=== PATIENT | male | born 1960 | race Caucasian/White ===

== ENCOUNTER 2019-03-03 18:06 | Inpatient (IN) ==
[2019-03-03 19:33] LABS: Eosinophils % 0.2 %; Hemoglobin 10.3 g/dL (12.9-16.9); Red Cell Distribution Width 15.5 % (11.5-14.5)
[2019-03-03 19:35] LABS: Basophils % 0.6 %; Immature Granulocytes % 0.2 % (0-4); Immature Platelets 7.8 % (1.1-6.1); Lymphocytes # 0.2 K/mcL (0.6-4.6); Lymphocytes % 3.7 %; Mean Corpuscular HGB Conc 33.2 g/dL (31.6-35.5); Mean Corpuscular Hemoglobin 32.5 pg (28.0-33.3); Mean Corpuscular Volume 97.8 fL (83.0-100.0); Mean Platelet Volume 11.4 fL (9.4-12.4); Monocytes # 0.3 K/mcL (0.0-1.3); Monocytes % 6.7 %; Neutrophils # 4.1 K/mcL (1.6-8.9); Red Blood Count 3.17 M/mcL (4.19-5.50); Segmented Neutrophils % 88.6 %; White Blood Count 4.6 K/mcL (4.3-11.1)
[2019-03-03] MEDS ORDERED: Piperacillin/Tazobactam 3.375 GM in 0.9 % Sodium Chloride Mini Bag 100 ML IVPB ONE (19:44)
[2019-03-03] MEDS ORDERED: Azithromycin 500 MG in 0.9 % Sodium Chloride 250 ML IVPB ONE (19:44)
[2019-03-03 19:51] LABS: Platelet Count 87 K/mcL (140-400)
[2019-03-03 19:52] LABS: Ovalocytes 2+ (Not Present); Platelet Estimate Decreased (Normal)
[2019-03-03 19:54] LABS: Calcium 9.1 mg/dL (8.6-10.3); Potassium 4.3 mEq/L (3.5-5.1)
[2019-03-03 19:58] LABS: Troponin I 0.05 ng/mL (< 0.04)
[2019-03-03] MEDS ORDERED: Aspirin 81 MG TAB.CHEW PO ONE (20:11)
[2019-03-03] MEDS ORDERED: Naloxone 0.4 MG/ML INJ IVP PRN (21:03)
[2019-03-03 21:49] LABS: VBG HCO3 30 mEq/L (21-27); VBG PCO2 40 mmHg (41-51); VBG PH 7.49 pH Units (7.32-7.42); VBG PO2 195 mmHg (25-50)
[2019-03-03] MEDS ORDERED: Levalbuterol Neb 1.25 MG/3 ML IH SCH (22:00)
[2019-03-03] MEDS ORDERED: NIFEdipine XL (24 HR) 30 MG TAB.ER.24 PO ONE (23:11)
[2019-03-03] MEDS: Melatonin 3 MG TABLET PO PRN (23:19)
[2019-03-03] MEDS: Acetaminophen 325 MG TABLET PO PRN (23:19)
[2019-03-03] MEDS: MethylPREDNISolone 40 MG/ML VIAL IVP SCH (23:19)
[2019-03-03] MEDS ORDERED: *HR* Metoprolol 5 MG/5 ML VIAL IVP ONE ×2 (23:24→23:26)
[2019-03-03 23:44] LABS: ABG Base Excess 8 mEq/L (-2 to 3); ABG HCO3 32 mEq/L (21-27); ABG Oxygen Saturation 91 % (95-98); ABG PCO2 41 mmHg (35-45); ABG PO2 56 mmHg (85-104); ABG TCO2 33 mEq/L (20-26)
[2019-03-03] MEDS: Levalbuterol Neb 1.25 MG/3 ML IH SCH (23:45)
[2019-03-04 01:18] LABS: Basophils % 0.5 %; Red Blood Count 3.16 M/mcL (4.19-5.50)
[2019-03-04 01:19] LABS: Hematocrit 30.9 % (37.5-50.1); Hemoglobin 10.3 g/dL (12.9-16.9); Immature Granulocytes % 0.5 % (0-4); Immature Platelets 7.7 % (1.1-6.1); Lymphocytes # 0.1 K/mcL (0.6-4.6); Lymphocytes % 2.3 %; Mean Corpuscular HGB Conc 33.3 g/dL (31.6-35.5); Mean Corpuscular Hemoglobin 32.6 pg (28.0-33.3); Mean Corpuscular Volume 97.8 fL (83.0-100.0); Mean Platelet Volume 11.2 fL (9.4-12.4); Monocytes # 0.3 K/mcL (0.0-1.3); Monocytes % 7.7 %; Neutrophils # 3.9 K/mcL (1.6-8.9); Red Cell Distribution Width 15.7 % (11.5-14.5); White Blood Count 4.4 K/mcL (4.3-11.1)
[2019-03-04 01:20] LABS: Platelet Count 80 K/mcL (140-400)
[2019-03-04 01:22] LABS: INR 1.4; Prothrombin Time 16.1 Seconds (9.4-12.1)
[2019-03-04 01:39] LABS: Calcium 8.8 mg/dL (8.6-10.3); Magnesium 1.8 mg/dL (1.6-2.6); Phosphorous 4.9 mg/dL (2.7-4.5); Potassium 4.9 mEq/L (3.5-5.1)
[2019-03-04] MEDS: *HR* Heparin 5,000 UNIT/ML VIAL SQ SCH ×2 (01:43→18:32)
[2019-03-04] MEDS: Levalbuterol Neb 1.25 MG/3 ML IH SCH ×5 (04:15→20:06)
[2019-03-04] MEDS ORDERED: Piperacillin/Tazobactam 3.375 GM in 0.9 % Sodium Chloride Mini Bag 100 ML IVPB SCH (08:00)
[2019-03-04 08:23] LABS: Hepatitis B Surface Antibody < 3.10 mIU/mL
[2019-03-04 08:34] LABS: Hepatitis B Surface Antigen Nonreactive (Nonreactive)
[2019-03-04] MEDS: Pregabalin 75 MG CAPSULE PO SCH ×2 (10:01→20:40)
[2019-03-04] MEDS: NIFEdipine XL (24 HR) 30 MG TAB.ER.24 PO SCH ×2 (10:02→20:40)
[2019-03-04] MEDS: Aspirin Enteric Coated 81 MG Tablet PO SCH (10:03)
[2019-03-04] MEDS: Cholecalciferol (D-3) 1,000 UNIT (25MCG) TABLET PO SCH (10:03)
[2019-03-04] MEDS: MethylPREDNISolone 40 MG/ML VIAL IVP SCH ×2 (10:05→20:40)
[2019-03-04] MEDS ORDERED: 0.9 % Sodium Chloride 250 ML IVC PRN (10:23)
[2019-03-04] MEDS: Acetaminophen 325 MG TABLET PO PRN (10:27)
[2019-03-04] MEDS ORDERED: 0.9 % Sodium Chloride 1,000 ML PRIME SCH (10:30)
[2019-03-04] MEDS: Azithromycin 250 MG TABLET PO SCH (10:34)
[2019-03-04] MEDS: Piperacillin/Tazobactam 3.375 GM in 0.9 % Sodium Chloride Mini Bag 100 ML IVPB SCH (17:44)
[2019-03-04] MEDS: Furosemide 40 MG TABLET PO SCH (17:54)
[2019-03-04] MEDS ORDERED: Azithromycin 500 MG in 0.9 % Sodium Chloride 250 ML IVPB SCH (20:00)
[2019-03-04] MEDS ORDERED: Furosemide 40 MG TABLET PO SCH (21:00)
[2019-03-04] MEDS: Melatonin 3 MG TABLET PO PRN (21:55)
[2019-03-04 23:33] LABS: Adenovirus Not Detected (Not Detect); Bordetella Pertussis Not Detected (Not Detect); Chlamydophila pneumoniae Not Detected (Not Detect); Coronavirus 229E Not Detected (Not Detect); Coronavirus HKU1 Not Detected (Not Detect); Coronavirus NL63 Not Detected (Not Detect); Coronavirus OC43 Not Detected (Not Detect); Human Metapneumovirus Not Detected (Not Detect); Human Rhinovirus/Enterovirus Not Detected (Not Detect); Influenza A Subtype 2009 H1 Not Detected (Not Detect); Influenza A Untypeable Not Detected (Not Detect); Influenza B Not Detected (Not Detect); Mycoplasma pneumoniae Not Detected (Not Detect); Parainfluenza Virus 1 Not Detected (Not Detect); Parainfluenza Virus 2 Not Detected (Not Detect); Parainfluenza Virus 3 Not Detected (Not Detect); Parainfluenza Virus 4 Not Detected (Not Detect); Respiratory Syncytial Virus DETECTED (Not Detect)
[2019-03-05] MEDS: Levalbuterol Neb 1.25 MG/3 ML IH SCH ×7 (00:04→23:23)
[2019-03-05 04:55] LABS: Hematocrit 29.8 % (37.5-50.1); Hemoglobin 9.7 g/dL (12.9-16.9); Immature Platelets 9.1 % (1.1-6.1); Mean Corpuscular HGB Conc 32.6 g/dL (31.6-35.5); Mean Corpuscular Volume 98.3 fL (83.0-100.0); Mean Platelet Volume 12.1 fL (9.4-12.4); Red Blood Count 3.03 M/mcL (4.19-5.50); Red Cell Distribution Width 15.8 % (11.5-14.5); White Blood Count 5.6 K/mcL (4.3-11.1)
[2019-03-05 05:06] LABS: Albumin 3.7 g/dL (3.5-5.7); Calcium 8.9 mg/dL (8.6-10.3)
[2019-03-05] MEDS: *HR* Heparin 5,000 UNIT/ML VIAL SQ SCH ×2 (06:16→17:08)
[2019-03-05] MEDS: Piperacillin/Tazobactam 3.375 GM in 0.9 % Sodium Chloride Mini Bag 100 ML IVPB SCH (06:20)
[2019-03-05] MEDS: Aspirin Enteric Coated 81 MG Tablet PO SCH (09:41)
[2019-03-05] MEDS: Azithromycin 250 MG TABLET PO SCH (09:42)
[2019-03-05] MEDS: Pregabalin 75 MG CAPSULE PO SCH ×2 (09:42→22:00)
[2019-03-05] MEDS: NIFEdipine XL (24 HR) 30 MG TAB.ER.24 PO SCH ×2 (09:42→22:00)
[2019-03-05] MEDS: Cholecalciferol (D-3) 1,000 UNIT (25MCG) TABLET PO SCH (09:42)
[2019-03-05] MEDS: Furosemide 40 MG TABLET PO SCH ×2 (09:45→17:08)
[2019-03-05] MEDS: predniSONE 20 MG TABLET PO SCH (09:56)
[2019-03-05] MEDS: Doxycycline 100 MG in 0.9 % Sodium Chloride Mini Bag 100 ML IVPB SCH (17:08)
[2019-03-05] MEDS: Melatonin 3 MG TABLET PO PRN (22:00)
[2019-03-05] MEDS: Acetaminophen 325 MG TABLET PO PRN (22:05)
[2019-03-06] MEDS: Levalbuterol Neb 1.25 MG/3 ML IH SCH ×3 (04:06→11:08)
[2019-03-06 04:47] LABS: Hematocrit 28.8 % (37.5-50.1); Hemoglobin 9.3 g/dL (12.9-16.9); Immature Platelets 9.9 % (1.1-6.1); Mean Corpuscular HGB Conc 32.3 g/dL (31.6-35.5); Mean Corpuscular Hemoglobin 32.1 pg (28.0-33.3); Mean Corpuscular Volume 99.3 fL (83.0-100.0); Mean Platelet Volume 12.3 fL (9.4-12.4); Red Blood Count 2.9 M/mcL (4.19-5.50); Red Cell Distribution Width 15.6 % (11.5-14.5); White Blood Count 4.6 K/mcL (4.3-11.1)
[2019-03-06 05:02] LABS: Albumin 3.6 g/dL (3.5-5.7); Calcium 8.9 mg/dL (8.6-10.3); Phosphorous 7.4 mg/dL (2.7-4.5); Potassium 5.2 mEq/L (3.5-5.1)
[2019-03-06] MEDS: *HR* Heparin 5,000 UNIT/ML VIAL SQ SCH (06:21)
[2019-03-06] MEDS: Doxycycline 100 MG in 0.9 % Sodium Chloride Mini Bag 100 ML IVPB SCH (06:43)
[2019-03-06] MEDS: Aspirin Enteric Coated 81 MG Tablet PO SCH (08:18)
[2019-03-06] MEDS: Pregabalin 75 MG CAPSULE PO SCH (08:18)
[2019-03-06] MEDS: Furosemide 40 MG TABLET PO SCH (08:18)
[2019-03-06] MEDS: predniSONE 20 MG TABLET PO SCH (08:18)
[2019-03-06] MEDS: Cholecalciferol (D-3) 1,000 UNIT (25MCG) TABLET PO SCH (08:18)
[2019-03-06] MEDS: NIFEdipine XL (24 HR) 30 MG TAB.ER.24 PO SCH (08:18)
[2019-03-06] MEDS ORDERED: 0.9 % Sodium Chloride 250 ML IVC PRN (09:20)
[2019-03-06] MEDS ORDERED: 0.9 % Sodium Chloride 1,000 ML PRIME SCH (09:30)
[2019-03-06 14:02] VITALS: BP 179/90
== END 2019-03-06 14:30 | disposition home or self-care (01) | DRG 871 ==
LOC: EMEROOARM 18:06 → 2ANU 18:06 → SUATTDRO 20:39 → 2ANU 21:10
PROVIDERS: ADMIT Internal Medicine; ATTEND Family Medicine

== ENCOUNTER 2019-03-24 15:03 | Observation (INO) ==
[2019-03-24 16:04] LABS: Basophils % 0.9 %; Eosinophils % 0.6 %; Hematocrit 31.9 % (37.5-50.1); Hemoglobin 10.5 g/dL (12.9-16.9); Immature Granulocytes % 0.6 % (0-4); Lymphocytes # 0.5 K/mcL (0.6-4.6); Lymphocytes % 13.6 %; Mean Corpuscular HGB Conc 32.9 g/dL (31.6-35.5); Mean Corpuscular Hemoglobin 32.5 pg (28.0-33.3); Mean Corpuscular Volume 98.8 fL (83.0-100.0); Mean Platelet Volume 12.3 fL (9.4-12.4); Monocytes # 0.3 K/mcL (0.0-1.3); Monocytes % 8.7 %; Neutrophils # 2.5 K/mcL (1.6-8.9); Platelet Count 103 K/mcL (140-400); Red Blood Count 3.23 M/mcL (4.19-5.50); Red Cell Distribution Width 15.9 % (11.5-14.5); Segmented Neutrophils % 75.6 %; White Blood Count 3.3 K/mcL (4.3-11.1)
[2019-03-24 16:18] LABS: Troponin I 0.05 ng/mL (< 0.04)
[2019-03-24 16:21] LABS: Albumin/Globulin Ratio 1.7 (1.1-2.2); Bilirubin,Direct 0.2 mg/dL (0.0-0.2); Bilirubin,Indirect 0.6 mg/dL (0.0-1.0); Bilirubin,Total 0.8 mg/dL (0.3-1.0); Calcium 9.2 mg/dL (8.6-10.3); Globulin 2.3 g/dL (2.4-3.5); Magnesium 2.1 mg/dL (1.6-2.6); Phosphorous 5.3 mg/dL (2.7-4.5); Potassium 4.7 mEq/L (3.5-5.1); Total Protein 6.3 g/dL (6.4-8.9)
[2019-03-24 17:28] LABS: Thyroid Stimulating Hormone 5.211 mcIU/mL (0.340-5.600)
[2019-03-24] MEDS ORDERED: Naloxone 0.4 MG/ML INJ IVP PRN (17:41)
[2019-03-24] MEDS: Pregabalin 75 MG CAPSULE PO SCH (20:18)
[2019-03-24] MEDS: NIFEdipine XL (24 HR) 30 MG TAB.ER.24 PO SCH (20:18)
[2019-03-24] MEDS: Budesonide/Formoterol 80/4.5 1 PUFF INH IH SCH (21:43)
[2019-03-25 03:01] LABS: Mean Corpuscular Volume 98.6 fL (83.0-100.0); Red Cell Distribution Width 15.9 % (11.5-14.5)
[2019-03-25 03:03] LABS: Basophils % 0.7 %; Eosinophils # 0.1 K/mcL (0.0-0.6); Eosinophils % 1.5 %; Hematocrit 28.5 % (37.5-50.1); Hemoglobin 9.4 g/dL (12.9-16.9); Immature Granulocytes % 0.5 % (0-4); Lymphocytes # 0.7 K/mcL (0.6-4.6); Mean Corpuscular Hemoglobin 32.5 pg (28.0-33.3); Mean Platelet Volume 11.7 fL (9.4-12.4); Monocytes # 0.5 K/mcL (0.0-1.3); Monocytes % 11.2 %; Neutrophils # 2.8 K/mcL (1.6-8.9); Red Blood Count 2.89 M/mcL (4.19-5.50); Segmented Neutrophils % 68.1 %; White Blood Count 4.1 K/mcL (4.3-11.1)
[2019-03-25 03:20] LABS: Calcium 8.8 mg/dL (8.6-10.3); Chol/HDL Ratio 1.7 (0-4.9); Magnesium 2.2 mg/dL (1.6-2.6); Potassium 4.9 mEq/L (3.5-5.1)
[2019-03-25 03:53] LABS: Platelet Count 89 K/mcL (140-400)
[2019-03-25] MEDS: Budesonide/Formoterol 80/4.5 1 PUFF INH IH SCH ×2 (07:43→20:35)
[2019-03-25 08:39] LABS: Estimated Average Glucose 97 mg/dl
[2019-03-25] MEDS ORDERED: 0.9 % Sodium Chloride 250 ML IVC PRN (09:36)
[2019-03-25] MEDS: Folic Acid 1 MG TABLET PO SCH (09:45)
[2019-03-25] MEDS: Pregabalin 75 MG CAPSULE PO SCH ×2 (09:45→18:24)
[2019-03-25] MEDS ORDERED: 0.9 % Sodium Chloride 1,000 ML PRIME SCH (09:45)
[2019-03-25] MEDS: NIFEdipine XL (24 HR) 30 MG TAB.ER.24 PO SCH ×2 (09:45→18:30)
[2019-03-25] MEDS: Vitamin B Complex/Vit C/Vit E 1 EACH TABLET PO SCH (09:45)
[2019-03-25] MEDS: predniSONE 5 MG TABLET PO SCH (09:45)
[2019-03-25] MEDS: Furosemide 40 MG TABLET PO SCH (09:45)
[2019-03-25] MEDS: Aspirin Enteric Coated 81 MG Tablet PO SCH (09:45)
[2019-03-25] MEDS: Cholecalciferol (D-3) 1,000 UNIT (25MCG) TABLET PO SCH (09:46)
[2019-03-26] MEDS ORDERED: *HR* Metoprolol 5 MG/5 ML VIAL IVP ONE (00:20)
[2019-03-26 02:15] LABS: Hemoglobin 9.4 g/dL (12.9-16.9); Immature Granulocytes % 0.3 % (0-4)
[2019-03-26 02:17] LABS: Basophils % 0.8 %; Eosinophils # 0.1 K/mcL (0.0-0.6); Eosinophils % 1.6 %; Immature Platelets 8.3 % (1.1-6.1); Lymphocytes # 0.7 K/mcL (0.6-4.6); Lymphocytes % 19.5 %; Mean Corpuscular HGB Conc 33.6 g/dL (31.6-35.5); Mean Corpuscular Hemoglobin 32.9 pg (28.0-33.3); Mean Corpuscular Volume 97.9 fL (83.0-100.0); Mean Platelet Volume 11.5 fL (9.4-12.4); Monocytes # 0.4 K/mcL (0.0-1.3); Monocytes % 11.3 %; Neutrophils # 2.4 K/mcL (1.6-8.9); Red Blood Count 2.86 M/mcL (4.19-5.50); Red Cell Distribution Width 15.6 % (11.5-14.5); Segmented Neutrophils % 66.5 %; White Blood Count 3.6 K/mcL (4.3-11.1)
[2019-03-26 02:24] LABS: Platelet Count 86 K/mcL (140-400)
[2019-03-26 02:36] LABS: Calcium 8.8 mg/dL (8.6-10.3); Potassium 4.2 mEq/L (3.5-5.1)
[2019-03-26] MEDS: NIFEdipine XL (24 HR) 30 MG TAB.ER.24 PO SCH (06:35)
[2019-03-26] MEDS: Folic Acid 1 MG TABLET PO SCH (06:35)
[2019-03-26] MEDS: Furosemide 40 MG TABLET PO SCH (06:36)
[2019-03-26] MEDS: Aspirin Enteric Coated 81 MG Tablet PO SCH (06:36)
[2019-03-26] MEDS: Vitamin B Complex/Vit C/Vit E 1 EACH TABLET PO SCH (06:36)
[2019-03-26] MEDS: predniSONE 5 MG TABLET PO SCH (06:36)
[2019-03-26] MEDS: Pregabalin 75 MG CAPSULE PO SCH (06:36)
[2019-03-26] MEDS: Cholecalciferol (D-3) 1,000 UNIT (25MCG) TABLET PO SCH (06:36)
[2019-03-26] MEDS ORDERED: 0.9 % Sodium Chloride 250 ML IVC PRN (06:55)
[2019-03-26] MEDS: Budesonide/Formoterol 80/4.5 1 PUFF INH IH SCH (07:38)
[2019-03-26 08:22] VITALS: BP 155/81
== END 2019-03-26 09:16 | disposition home or self-care (01) ==
LOC: 2NENU 15:03 → EMEROOARM 15:03 → SUATTDRO 17:12 → 2NENU 18:14
PROVIDERS: ADMIT Internal Medicine; ATTEND Internal Medicine

== ENCOUNTER 2019-05-01 21:05 | Observation (INO) ==
[2019-05-01 21:42] LABS: Basophils % 0.9 %; Eosinophils % 0.9 %; Hematocrit 31.9 % (37.5-50.1); Hemoglobin 10.8 g/dL (12.9-16.9); Immature Granulocytes % 0.2 % (0-4); Lymphocytes # 0.5 K/mcL (0.6-4.6); Lymphocytes % 12.6 %; Mean Corpuscular HGB Conc 33.9 g/dL (31.6-35.5); Mean Corpuscular Hemoglobin 33.5 pg (28.0-33.3); Mean Corpuscular Volume 99.1 fL (83.0-100.0); Mean Platelet Volume 11.3 fL (9.4-12.4); Monocytes # 0.3 K/mcL (0.0-1.3); Monocytes % 7.7 %; Neutrophils # 3.3 K/mcL (1.6-8.9); Platelet Count 118 K/mcL (140-400); Red Blood Count 3.22 M/mcL (4.19-5.50); Red Cell Distribution Width 14.9 % (11.5-14.5); Segmented Neutrophils % 77.7 %; White Blood Count 4.3 K/mcL (4.3-11.1)
[2019-05-01 22:05] LABS: Calcium 9.9 mg/dL (8.6-10.3); Troponin I 0.03 ng/mL (< 0.04)
[2019-05-02] MEDS ORDERED: Acetaminophen 325 MG TABLET PO PRN (00:47)
[2019-05-02] MEDS ORDERED: Naloxone 0.4 MG/ML INJ IVP PRN (00:47)
[2019-05-02] MEDS ORDERED: *HR* Heparin 5,000 UNIT/ML VIAL SQ SCH (06:00)
[2019-05-02 06:41] LABS: Basophils % 0.7 %; Eosinophils # 0.1 K/mcL (0.0-0.6); Eosinophils % 1.3 %; Hematocrit 29.2 % (37.5-50.1); Hemoglobin 9.8 g/dL (12.9-16.9); Immature Granulocytes % 0.2 % (0-4); Lymphocytes # 0.7 K/mcL (0.6-4.6); Lymphocytes % 15.3 %; Mean Corpuscular HGB Conc 33.6 g/dL (31.6-35.5); Mean Corpuscular Hemoglobin 33.4 pg (28.0-33.3); Mean Corpuscular Volume 99.7 fL (83.0-100.0); Monocytes # 0.5 K/mcL (0.0-1.3); Monocytes % 10.3 %; Neutrophils # 3.2 K/mcL (1.6-8.9); Platelet Count 110 K/mcL (140-400); Red Blood Count 2.93 M/mcL (4.19-5.50); Red Cell Distribution Width 14.7 % (11.5-14.5); Segmented Neutrophils % 72.2 %; White Blood Count 4.5 K/mcL (4.3-11.1)
[2019-05-02 06:56] LABS: INR 1.2; Prothrombin Time 13.4 Seconds (9.4-12.1)
[2019-05-02 07:05] LABS: Albumin 4.1 g/dL (3.5-5.7); Albumin/Globulin Ratio 2.1 (1.1-2.2); Bilirubin,Total 0.7 mg/dL (0.3-1.0); Calcium 9.5 mg/dL (8.6-10.3); Potassium 4.4 mEq/L (3.5-5.1); Total Protein 6.1 g/dL (6.4-8.9)
[2019-05-02 07:28] LABS: Hepatitis B Surface Antibody < 3.10 mIU/mL
[2019-05-02 07:39] LABS: Hepatitis B Surface Antigen Nonreactive (Nonreactive)
[2019-05-02 08:14] VITALS: BP 181/89
[2019-05-02] MEDS ORDERED: Furosemide 40 MG TABLET PO SCH (09:00)
[2019-05-02] MEDS ORDERED: Budesonide/Formoterol 80/4.5 1 PUFF INH IH SCH (09:00)
[2019-05-02] MEDS ORDERED: Aspirin Enteric Coated 81 MG Tablet PO SCH (09:00)
[2019-05-02] MEDS ORDERED: Pregabalin 75 MG CAPSULE PO SCH (09:00)
[2019-05-02] MEDS ORDERED: predniSONE 5 MG TABLET PO SCH (09:00)
[2019-05-02] MEDS ORDERED: Ipratropium/Albuterol Neb 3 ML IH SCH (10:00)
[2019-05-02] MEDS ORDERED: Diltiazem CD (24hr) 240 MG CAPSULE PO SCH (10:15)
== END 2019-05-02 13:27 | disposition home or self-care (01) ==
LOC: EMEROOARM 21:05 → 2NENU 21:05
PROVIDERS: ADMIT Internal Medicine; ATTEND Internal Medicine